=== PATIENT | female | born 1950 | race Two or more races ===

== ENCOUNTER 2017-09-30 22:17 | Emergency (ER) | payer MEDICARE ==
[2017-09-30 22:41] VITALS: TEMP 98.3
--- NOTE | 2017-09-30 23:39 | ED ---
General Adult HPI - General Chief complaint: Eye Problems Stated complaint: Vision changes Time Seen by Provider: 09/30/17 23:04 Source: patient, family, RN notes reviewed Mode of arrival: wheelchair Limitations: no limitations - History of Present Illness Initial comments: chief complaint and history of present illness this is a 67-year-old female here with a friend. The patient reports that approximately 6 PM this evening, while at home, she noticed what appeared to be some white flickering lights. Afterwards she noticed an irregular shaped entity that appeared to be dark or black in color that occupied approximately 10% of her visual field. Extraocular movements are normal. No headache or eye pain. No significant - Related Data Home Medications Medication Instructions Recorded Confirmed Multivitamins, Thera [Multivitamin 1 tab PO DAILY 10/30/13 08/27/15 (formulary)] Calcium Carbonate [Calcium] 600 mg PO DAILY 08/27/15 08/27/15 Cholecalciferol [Vitamin D3] 1,000 units PO DAILY 08/27/15 08/27/15 Cyanocobalamin [Vitamin B-12] 500 mcg PO DAILY 08/27/15 08/27/15 FLUoxetine HCL [Fluoxetine HCl] 80 mg PO DAILY 08/27/15 08/27/15 Magnesium Oxide [Mag-Ox] 250 mg PO DAILY 08/27/15 08/27/15 traZODone HCL [Desyrel] 100 mg PO HS 08/27/15 08/27/15 Previous Rx's Medication Instructions Recorded Omeprazole [PriLOSEC] 40 mg PO AC-BRKFST #90 cap 11/29/13 Ciprofloxacin HCl [Cipro] 500 mg PO Q12HR 5 Days tablet 08/27/15 Allergies Allergy/AdvReac Type Severity Reaction Status Date / Time HORNET STINGS Allergy Anaphylaxis Uncoded 09/30/17 22:41 Review of Systems ROS Statement: Those systems with pertinent positive or pertinent negative responses have been documented in the HPI. No significant change in visual acuity, right eye is 20/25 left eye is 203 0 .had Lasix review of systems. No headache the patient's visual acuity as noted above, eye complaints as noted above. No palpitations no chest pain or shortness of breath no neuro deficits. No weakness. All systems were reviewed. Past medical problems significant for GERD, sleep apnea, benign breast cyst removed when she was young. The patient's surgeries include breast reduction, arthroscopic surgery of the knees. Tonsillectomy and Lasix surgery to the eyes. Visual acuity as noted above is 20/25 in the right 20/30 in the left. Patient is a nonsmoker nondrinker. Patient denies any ALLERGIES to medications. She does have local over reaction to hornet bites. ROS Other: All systems not noted in ROS Statement are negative. Past Medical History Past Medical History: GERD/Reflux, Sleep Apnea/CPAP/BIPAP Additional Past Medical History / Comment(s): benign cyst at 9 yrs old, using c- pap, Diagnosed with gullstones last summer. History of Any Multi-Drug Resistant Organisms: None Reported Past Surgical History: Breast Surgery, Orthopedic Surgery, Tonsillectomy Additional Past Surgical History / Comment(s): lasik surgery to eyes, breast reduction 1992, orthoscopic surgery to left knee 1999, EGD 2013, GASTRIC SLEEVE Past Anesthesia/Blood Transfusion Reactions: No Reported Reaction Past Psychological History: Depression Smoking Status: Never smoker Past Alcohol Use History: Rare Past Drug Use History: None Reported - Past Family History Mother Family Medical History: Cancer Additional Family Medical History / Comment(s): cancer in spinal cord, General Exam - General Exam Comments Initial Comments: General: The patient is awake and alert, here because she is experiencing some change in her visual field. Describes it as and he irregular dark shape obstructing approximately 10% of her visual field. Vital signs temperature 98.3, pulse 84, respiratory rate 18, pulse ox 100 percent room air, blood pressure 135/87. Eye: Pupils are equal, round and reactive to light, extra-ocular movements are intact ; there is normal conjunctiva bilaterally. No signs of icterus. visual acuity 2024 right eye, 20/30 left eye. Patient describes an irregular shaped dark area obstructing approximately 10% of her visual field on the right eye. Good peripheral vision no significant change in visual acuity per patient or by examination. Neck: The neck is supple, no carotid bruit,there is no tenderness . Cardiovascular: There is a regular rate and rhythm. No murmur, rub or gallop is appreciated. Respiratory: Lungs are clear to auscultation, respirations are non-labored, breath sounds are equal. No wheezes, stridor, rales, or rhonchi. Back: There is no tenderness to palpation in the midline. There is no obvious deformity. Musculoskeletal: Normal ROM, no tenderness, patient has arthritis, wears a knee brace on her left knee. Neurological: no focal or lateralizing findings. Denies dizziness, denies weakness. Only complaint is visual acuity change as noted in the above examination. Skin: Skin is warm and dry and no rashes or lesions are noted. Psychiatric: Cooperative, Limitations: no limitations Course Vital Signs 09/30/17 22:37 Temperature 98.3 F Pulse Rate 64 Respiratory 18 Rate Blood Pressure 155/87 O2 Sat by Pulse 100 Oximetry Medical Decision Making - Medical Decision Making medical decision making; this is a 67-year-old female here with a friend. The patient had acute visual irregularity starting at 6 PM this evening. Describes it as a dark irregular shape. No significant change in visual acuity. His persistent when she looks in the zepeda screen. I discussed the case with on-call lead coater Dr. Morel. He'll see the patient in the office tomorrow. He states it appears the patient may have had a vitreous hemorrhage. Does not think it's retinal detachment due to the fact that the patient has not had any change in her visual acuity. Patient was given the address of the lead coater office. Advised to be there at 5 PM tomorrow. If she has any problems or difficulties return emergency room. Disposition Clinical Impression: Vitreous hemorrhage of right eye Narrative: follow-up with the lead coater tomorrow, and office. Return emergency room if there are any acute changes. Disposition: HOME SELF-CARE Condition: Fair Instructions: Visual Floaters (ED) Additional Instructions: No exercising, no heavy lifting or straining. Follow-up with Dr. Mccracken at 5 PM in his office. Return emergency room if needed. Is patient prescribed a controlled substance at d/c from ED?: No Referrals: Avelina Flores MD [Primary Care Provider] - 1-2 days Destini Morel MD [STAFF PHYSICIAN] - 1-2 days Time of Disposition: 23:40
[2017-09-30 23:50] VITALS: BP 144/66; PULSE 65; RESP 16
== END 2017-09-30 23:49 | disposition home or self-care (01) ==
LOC: EC 22:17
DX: H43.11 Vitreous hemorrhage, right eye (principal); M19.90 Unspecified osteoarthritis, unspecified site; G47.30 Sleep apnea, unspecified; F32.9 Major depressive disorder, single episode, unspecified; Z79.899 Other long term (current) drug therapy; Z91.038 Other insect allergy status; Z99.89 Dependence on other enabling machines and devices; Z98.890 Other specified postprocedural states
CPT/HCPCS: 99283

== ENCOUNTER → 2024-03-22 | Outpatient (CLI) | payer MEDICARE ==
--- NOTE | 2024-03-22 12:35 | XR ---
EXAMINATION TYPE: XR chest 2V, XR 3 views sternum DATE OF EXAM: 03/22/2024 12:17 PM COMPARISON: None CLINICAL INDICATION: Female, 73 years old with history of [id number] CHEST PAIN, FALL, , FINDINGS: Chest: The cardiomediastinal silhouette, aorta, and pulmonary vasculature are within normal limits. Mild hyp erinflation and mild interstitial prominence is chronic appearance. No consolidation, pneumothorax, o r pleural effusion. DISH throughout the mid thoracic spine. Sternum: No depressed or angulated fracture identified on the lateral view of the sternum. IMPRESSION: 1. Chest: COPD. No definite acute process. 2. Sternum: No depressed or angulated sternal fracture identified radiographically. [facility], , 03/22/2024 12:33 PM
== END | disposition home or self-care (01) ==
LOC: RADXRYALE 11:58
PROVIDERS: ATTEND Family Medicine
DX: J44.9 Chronic obstructive pulmonary disease, unspecified (principal); W01.0XXA Fall on same level from slipping, tripping and stumbling without subsequent striking against object, initial encounter
CPT/HCPCS: 71046; 71120